=== PATIENT | female | born 1990 | race Caucasian/White ===

== ENCOUNTER 2021-12-24 21:26 | Outpatient (CLI) | payer OTHER ==
[~2021-12-24] VITALS: Ht 162.6 cm; Wt 102.3 kg
--- NOTE | 2021-12-24 21:40 | NUR ---
2139- PATIENT AND SPOUSE TO THE UNIT. ORIENTATED TO ROOM AND CHANGED INTO CLEAN GOWN. PATIENT OF DR WINTER WHO IS A AT 38.5. PRESENTS WITH CONTRACTIONS THAT BECAME CONSISTENTLY 5-7 MINUTES APART AROUND 1929. REPORTS GFM, DENIES LOF, BLEEDING OR OTHER CONCERNS 2144- EFM AND TOCO ON AND TRACING. VITALS TAKEN AND ASSESSMENT COMPLETED. PLAN OF CARE DISCUSSED. PATIENT VERBALIZED UNDERSTANDING WITH NO FURTHER QUESTIONS AT THIS TIME. CALL LIGHT WITHIN REACH.
[2021-12-24 22:00] VITALS: BP 141/88; PULSE 60; TEMP 98
[2021-12-24] MEDS ORDERED: PRENATAL TABLET PO (22:38)
[2021-12-24] MEDS ORDERED: NATURAL IRON65 MG (22:38)
[2021-12-24 23:06] VITALS: BP 114/61; PULSE 67
== END 2021-12-24 23:15 | disposition home or self-care (01) ==
LOC: LDRO 21:26
DX: Z34.93 Encounter for supervision of normal pregnancy, unspecified, third trimester (principal); Z3A.38 38 weeks gestation of pregnancy

== ENCOUNTER 2021-12-25 11:18 | Inpatient (IN) | payer OTHER ==
[2021-12-25] VITALS (36 sets, daily range): BP systolic 101–160; BP diastolic 52–92; PULSE 47–97; TEMP 97.8–98.4
[~2021-12-25] VITALS: Ht 162.6 cm; Wt 101.8 kg
[~2021-12-25 11:18] MED LIST: NATURAL IRON65 MG; PRENATAL TABLET PO
--- NOTE | 2021-12-25 11:30 | NUR ---
Pt arrived on unit via wheelchair escorted by and with complaints of contractions every 3-6 minutes since 7pm. Pt denies any leaking of fluid or vaginal bleeding and reports normal movement. EFM and toco monitors started. Vital signs WNL. SVE by this RN /-2.
--- NOTE | 2021-12-25 13:30 | NUR ---
Difficult to trace contractions. Pt and her report they are timing them every 4 minutes.
--- NOTE | 2021-12-25 13:50 | NUR ---
Dr. Weaver on the unit. Update given with SVE /-2. Orders for labor admission received. Plan of care reviewed with pt and at the bedside. Both verbalized an understanding.
[2021-12-25 14:32] LABS: BASO % 0.1 % (0.0-2.0); EOS % 0.1 % (0.0-4.0); GRAN # 7.2 K/mm3 (1.4-6.5); HEMOGLOBIN 11.5 g/dl (12.5-16.0); LYMPH % 11.6 % (20.0-51.0); MEAN CELL VOLUME 92 fl (80.0-100.0); MEAN CORPUSCULAR HEMOGLOBIN 31 pg (27-31); MEAN CORPUSCULAR HGB CONC 34 g/dl (33.0-37.0); MEAN PLATELET VOLUME 9.7 fl (7.4-10.4); MONO # 0.3 K/mm3 (0.1-0.6); MONO % 3.4 % (1.7-9.3); PLATELET COUNT 221 K/mm3 (130-400); RED BLOOD COUNT 3.67 M/mm3 (4.10-5.30); REDCELL DISTRIBUTION WIDTH-CV 14.7 % (11.5-14.5)
[2021-12-25 14:34] LABS: HEMATOCRIT 33.6 % (37.0-47.0)
--- NOTE | 2021-12-25 14:48 | NUR ---
1440- LC Benítez at the bedside for epidural placement. Pt off EFM to bathroom. 1445- Pt sitting on the edge of the bed for epidural placement. SPO2 monitor started. EFM intermittently tracing maternal HR as coorelates with SPO2 monitor. 1448- Single shot given per LC Benítez. See anesthesia records for details. 1454- Assisted pt back to supine position with left wedge. EFM and toco monitors adjusted. 1555- Dr. Weaver at the bedside. 1557- SVE with AROM per Dr. Weaver.
[2021-12-26] VITALS (32 sets, daily range): BP systolic 100–136; BP diastolic 56–86; PULSE 61–97; TEMP 97.5–98.8
--- NOTE | 2021-12-26 03:50 | NUR ---
0350- THIS RN TO BEDSIDE FOR SVE. PATIENT IS COMPLETE AND +1 STATION. DISCUSSED PUSHING WITH PATIENT AND EXPLAINED PLAN OF CARE FROM HERE ON OUT. PATIENT VERBALIZED UNDERSTANDING. THIS RN PREPPED PATIENT AND ROOM FOR DELIVERY. 0403- FIRST PUSH WITH PATIENT. THIS RN REMAINS AT BEDSIDE AND CONTINUES PUSHING WITH PATIENT DURING CONTRACTIONS. PATIENT PUSHING WELL AND MAKING GOOD PROGRESS. 0439- THIS RN CALLS PROVIDER TO COME TO HOSPITAL FOR DELIVERY. SEE PHYSICIAN NOTIFICATION. 0453- PROVIDER TO BEDSIDE. PATIENT AND ROOM PREPPED FOR DELIVERY, BED BROKEN DOWN. NURSERY NURSE CALLED TO BEDSIDE FOR DELIVERY AT THIS TIME. 0455- FIRST PUSH WITH PROVIDER. PATIENT CONTINUES PUSHING WITH CONTRACTIONS. 0503- OF VIABLE MALE WITH NUCHAL TIMES ONE. PLACED TO MOTHERS ABDOMEN WHERE NURSERY NURSE ASSUMES CARE AT THIS TIME. CORD CLAMPED AND CUT. PITOCIN TURNED OFF AT THIS TIME. 0507- OF PLACENTA. PITOCIN TURNED ON PER PROTOCOL AT 333ML/HR. THIS RN PERFORMED FUNDAL MASSAGE WITH MODERATE BRIGHT RED LOCHIA NOTED. FUNDUS FIRMED WITH MASSAGED. VAGINAL WALL LACERATION NOTED BY PROVIDER ADN REPAIRED DURING THIS TIME. EBL NOTED TO BE 200 BY PROVIDER. 0510- VITALS STABLE, FUNDUS FIRM. PATIENT AND ROOM CLEANED UP AND PUT BACK TOGETHER. NEW CHUX, PERIDPAD AND ICEPACK TO PERINEUM. RECOVERY STARTED.
--- NOTE | 2021-12-26 07:30 | NUR ---
Pt up to the bathroom with stand-by assist and without complications. Pt was able to void. Nadya-care done. Pt transferred to room 208 ambulatory. Oriented to room, bed and call light within reach. Plan of care reviewed.
[2021-12-27 00:46] VITALS: BP 133/78; PULSE 63; TEMP 97.8
[2021-12-27 04:30] VITALS: BP 110/72; PULSE 59; TEMP 97.8
[2021-12-27 07:50] VITALS: BP 106/59; PULSE 78; TEMP 97.9
[2021-12-27] MEDS ORDERED: MOTRIN 800800 MG/TAB PO (08:36)
--- NOTE | 2021-12-27 09:42 | NUR ---
Initial visit; Parents thanked Supervisor Purification for offering congratulations and God's blessings for the of their son. Supervisor Purification thanked family for choosing [facility].
--- NOTE | 2021-12-27 14:46 | NUR ---
Discharge instructions reviewed with pt regarding follow-up appointment, pain control/medications, and when to see physician. Pt verbalizes understanding, denies questions or concerns at this time.
--- NOTE | 2021-12-27 15:06 | NUR ---
Pt discharged home, ambulates out of facility accompanied by spouse and NATHALY Larose.
== END 2021-12-27 15:07 | disposition home or self-care (01) | DRG 806 ==
LOC: LDRO 11:18 → OB 13:54 → LDR 13:54 → OB 12-26 07:44
PROVIDERS: ADMIT Obstetrics & Gynecology
PROC: 10E0XZZ Delivery of Products of Conception, External Approach (ICD-10-PCS; principal; 2021-12-26)
PROC: 0KQM0ZZ Repair Perineum Muscle, Open Approach (ICD-10-PCS; 2021-12-26)
PROC: 10907ZC Drainage of Amniotic Fluid, Therapeutic from Products of Conception, Via Natural or Artificial Opening (ICD-10-PCS; 2021-12-26)
DX: O99.344 Other mental disorders complicating childbirth (principal); O71.4 Obstetric high vaginal laceration alone; Z37.0 Single live birth; F90.9 Attention-deficit hyperactivity disorder, unspecified type; O69.81X0 Labor and delivery complicated by cord around neck, without compression, not applicable or unspecified; O77.0 Labor and delivery complicated by meconium in amniotic fluid; Z3A.38 38 weeks gestation of pregnancy
CPT/HCPCS: J2590; J2791; J7120

== ENCOUNTER 2023-11-21 17:42 | Inpatient (IN) | payer OTHER ==
[~2023-11-21] VITALS: Ht 162.6 cm; Wt 105.0 kg
[2023-11-21] VITALS (21 sets, daily range): BP systolic 105–146; BP diastolic 54–84; PULSE 63–89; TEMP 98
[~2023-11-21 17:42] MED LIST changes: +MOTRIN 800800 MG/TAB PO
[2023-11-21] MEDS ORDERED: LR 1,000 ML IV SCH (17:45)
[2023-11-21] MEDS ORDERED: LR & Oxytocin 500 ML IV SCH (17:45)
--- NOTE | 2023-11-21 17:59 | NUR ---
1720 PATIENT HERE FROM HOME WITH COMPLAINTS OF LARGE GUSH AT 1530 TODAY. EFM ON FHT 135 GOOD ACCELERATIONS NOTED. AMNIOTRACE POSITIVE WITH LARGE AMOUNT FLUID. SVE /-3. DR LONG CALLED WITH ABOVE INFORMATION. ORDERS TO ADMIT TO LABOR. 1800 IV STARTED IN LEFT HAND.
[2023-11-21 18:00] LABS: BASO % 0.4 % (0.0-2.0); EOS # 0.1 K/mm3 (0.0-0.7); EOS % 1.2 % (0.0-4.0); GRAN # 5.2 K/mm3 (1.4-6.5); GRAN % 70.5 % (42.2-75.2); HEMOGLOBIN 11.8 g/dl (12.5-16.0); LYMPH # 1.5 K/mm3 (1.2-3.4); LYMPH % 19.9 % (20.0-51.0); MEAN CELL VOLUME 91 fl (80.0-100.0); MEAN CORPUSCULAR HEMOGLOBIN 31 pg (27-31); MEAN CORPUSCULAR HGB CONC 34 g/dl (33.0-37.0); MEAN PLATELET VOLUME 9.8 fl (7.4-10.4); MONO # 0.5 K/mm3 (0.1-0.6); MONO % 7.3 % (1.7-9.3); PLATELET COUNT 241 K/mm3 (130-400); RED BLOOD COUNT 3.79 M/mm3 (4.10-5.30); REDCELL DISTRIBUTION WIDTH-CV 15.1 % (11.5-14.5)
[2023-11-21 18:01] LABS: HEMATOCRIT 34.3 % (37.0-47.0)
--- NOTE | 2023-11-21 18:41 | NUR ---
Dr Garcia into room, plan of care reviewed, bedside sono verifies vertex presentation.
--- NOTE | 2023-11-21 19:20 | NUR ---
Pt moves to edge of bed for epidural placement. See anesthesia record. EFM monitor with loss of tracing while sitting on edge of bed.
[2023-11-21] MEDS ORDERED: ROPivacaine PF 0.2% 200 ML IV ONE (19:46)
[2023-11-21] MEDS ORDERED: ePHEDrine 50 MG/10 ML VIAL IV PRN (20:00)
[2023-11-21] MEDS ORDERED: Naloxone 0.4 MG/ML VIAL IV PRN (20:00)
[2023-11-21] MEDS ORDERED: diphenhydrAMINE 50 MG/ML 1 ML VIAL IV PRN (20:00)
[2023-11-21] MEDS ORDERED: Ondansetron 4 MG/2 ML VIAL IV PRN (20:00)
[2023-11-21] MEDS ORDERED: diphenhydrAMINE 25 MG CAP PO PRN (20:00)
[2023-11-21] MEDS ORDERED: LEVOXYL0.075 MG (21:03)
[2023-11-22] VITALS (33 sets, daily range): BP systolic 84–165; BP diastolic 54–82; PULSE 62–92; TEMP 97–98.3
--- NOTE | 2023-11-22 02:30 | NUR ---
FHT's with loss of tracing. This RN into room to adjust monitors. 0240 FHT's 110'S.
--- NOTE | 2023-11-22 03:40 | NUR ---
Pt reports "I'm shakey, nauseated, and I'm feeling some vaginal pressure." SVE as noted. to SF. Emesis 300cc. Zofran IV. Warm blankets. Will labor down, let Zofran have a chance to help with nausea.
--- NOTE | 2023-11-22 04:15 | NUR ---
pushing instructions given.
--- NOTE | 2023-11-22 05:40 | NUR ---
. 0543 Dr Garcia into room. Pt prepped for delivery. [address] Garcia. Infant to pt's chest. Dad cuts cord.
--- NOTE | 2023-11-22 05:50 | NUR ---
Placenta delivers spont and intact w 3 vessel cord. Pitocin gtt to bolus rate. Pt and spouse loving and pleased with infant.
--- NOTE | 2023-11-22 05:55 | NUR ---
Perineal repair complete. Pericare done, ice pack to perineum, bed together.
[2023-11-22] MEDS ORDERED: Loratadine 10 MG TAB PO PRN (06:00)
[2023-11-22] MEDS ORDERED: Magnes Hydrox (MOM) 80 MG/ML 30 ML CUP PO PRN (06:00)
[2023-11-22] MEDS ORDERED: Naloxone 0.4 MG/ML VIAL IV PRN (07:30)
[2023-11-22] MEDS ORDERED: Witch Hazel 50% Pads Bulk TUB TP PRN (07:30)
[2023-11-22] MEDS ORDERED: oxyCODONE 5 MG TAB PO PRN (07:30)
[2023-11-22] MEDS ORDERED: Mag/Al Hydrox/Simeth Susp 30 ML CUP PO PRN (07:30)
[2023-11-22] MEDS ORDERED: Ibuprofen 600 MG TAB PO SCH (07:30)
[2023-11-22] MEDS ORDERED: Phenylephrine/Mineral Oil/Petrolatum 57 GM TUBE RC PRN (07:30)
[2023-11-22] MEDS ORDERED: Acetaminophen 500 MG TAB PO PRN (07:30)
[2023-11-22] MEDS ORDERED: Measles/Mumps/Rubella Virus Vaccine Live w Diluent 0.5 ML VIAL SQ SCH (07:30)
[2023-11-22] MEDS ORDERED: Sennosides/Docusate 8.6-50 MG TAB PO SCH (08:00)
--- NOTE | 2023-11-22 08:00 | NUR ---
PT AMBULATORY TO BATHROOM. PT VOIDS 800CC. PERICARE DONE. CLEAN PAD AND UNDERWEAR PLACED. PT TRANSPORTED TO 219 VIA WHEELCHAIR. PT ORIENTED TO ROOM. POC DISCUSSED. PT VERBALIZES UNDERSTANDING.
[2023-11-22] MEDS ORDERED: Prenatal Vitamins/Iron/FA TAB PO SCH (09:00)
[2023-11-22] MEDS ORDERED: Ferrous Sulfate 325 MG TAB PO SCH (09:00)
[2023-11-22] MEDS ORDERED: Rho(D) Imm Globulin 1,500 UNITS (300 MCG)/2 ML SYRINGE IV\\IM SCH (17:30)
[2023-11-22] MEDS ORDERED: traZODone 50 MG TAB PO PRN (21:00)
[2023-11-23 04:00] VITALS: BP 131/69; PULSE 77; TEMP 97.8
[2023-11-23] MEDS ORDERED: MOTRIN 600600 MG/TAB PO (08:18)
[2023-11-23] MEDS ORDERED: ROXICODONE 55 MG/TAB PO (08:18)
[2023-11-23 08:39] VITALS: BP 147/54; PULSE 67; TEMP 97.8
--- NOTE | 2023-11-23 09:48 | NUR ---
Initial visit; Parents thanked Farm Equipment Service Technician for offering congratulations and God's blessings for the of their son. Farm Equipment Service Technician thanked family for choosing [place] and hopes they had a good experience at our hospital.
== END 2023-11-23 12:18 | disposition home or self-care (01) | DRG 807 ==
LOC: LDRO 17:42 → LDR 17:54 → OB 11-22 07:00
PROVIDERS: ADMIT Obstetrics & Gynecology
PROC: 10E0XZZ Delivery of Products of Conception, External Approach (ICD-10-PCS; principal; 2023-11-22)
PROC: 3E033VJ Introduction of Other Hormone into Peripheral Vein, Percutaneous Approach (ICD-10-PCS; 2023-11-22)
DX: O99.284 Endocrine, nutritional and metabolic diseases complicating childbirth (principal); Z37.0 Single live birth; O99.02 Anemia complicating childbirth; E03.9 Hypothyroidism, unspecified; O99.214 Obesity complicating childbirth; F90.9 Attention-deficit hyperactivity disorder, unspecified type; O99.344 Other mental disorders complicating childbirth; Z3A.39 39 weeks gestation of pregnancy; Z23 Encounter for immunization
CPT/HCPCS: J2405; J2590; J2791; J2795; J7120